=== PATIENT | male | born 1990 | race Two or more races ===

== ENCOUNTER 2019-05-02 12:45 | Emergency (ER) | payer SELFPAY ==
[2019-05-02 12:53] VITALS: BP 117/67
[2019-05-02] MEDS ORDERED: DOCUSATE SODIUM 100 MG CAPSULE RT_EAR ONE (12:59)
--- NOTE | 2019-05-02 13:25 | ER Document Report ---
HPI - HPI Patient complains to provider of: Right ear pain Time Seen by Provider: 05/02/19 12:53 Onset: Other - Days Quality of pain: Achy Pain Level: 4 Context: 36-year-old male presents emergency department with complaints of right ear pain. Reports he cannot hear out of the ear. Has been using peroxide to clean out without success. Reports fever of 102. Denies vomiting diarrhea. Denies past medical history of injury to his ear. Associated Symptoms: Earache Exacerbated by: Denies Relieved by: Denies Similar symptoms previously: No Recently seen / treated by doctor: No - CONSTITUTIONAL Constitutional: REPORTS: Fever - EENT EENT: REPORTS: Ear Pain - right ear - REPRODUCTIVE Reproductive: DENIES: : Past Medical History - General Information source: Patient - Social History Smoking Status: Current Every Day Smoker Chew tobacco use (# tins/day): No Frequency of alcohol use: None Drug Abuse: None Lives with: Friend Family History: None Patient has suicidal ideation: No Patient has homicidal ideation: No - Medical History Medical History: Negative Surgical Hx: Negative Vertical Provider Document - CONSTITUTIONAL Agree With Documented VS: Yes Exam Limitations: No Limitations General Appearance: WD/WN, No Apparent Distress - INFECTION CONTROL TRAVEL OUTSIDE OF THE [place] IN LAST 30 DAYS: No - HEENT HEENT: Atraumatic, Normocephalic. negative: Conjuctival Injection, Pharyngeal Erythema, Tympanic Membrane Red - right ear with cerumen impaction, some wax removed, irrigation ordered - NECK Neck: Normal Inspection, Supple. negative: Lymphadenopathy-Left, Lymphadenopathy-Right - RESPIRATORY Respiratory: No Respiratory Distress - CARDIOVASCULAR Cardiovascular: Regular Rate - MUSCULOSKELETAL/EXTREMETIES Musculoskeletal/Extremeties: ELAINA DOHERTY - NEURO Level of Consciousness: Awake, Alert, Appropriate Motor/Sensory: No Motor Deficit Course - Re-evaluation Re-evalutation: 05/02/19 14:09 right ear irrigated with a large amount of ear wax obtained. pt reports he can hear! Instructed on OTC ear wax kits. Instructed to fu with pcp, return for concerns. He verbalized understanding. - Vital Signs Vital signs: Temp Pulse Resp BP Pulse Ox 98.1 F 72 16 117/67 97 05/02/19 12:52 05/02/19 12:52 05/02/19 12:52 05/02/19 12:52 05/02/19 12:52 Discharge - Discharge Clinical Impression: Right ear pain Cerumen impaction Qualifiers: Laterality: right Qualified Code(s): H61.21 - Impacted cerumen, right ear Condition: Stable Disposition: HOME, SELF-CARE Instructions: Cerumen Impaction ([facility]), Use of [id number] Ibuprofen ([facility]) Additional Instructions: *You have been evaluated for ear pain, Cerumen impaction *Your right ear has been irrigated with a large amount of was removed *Use ear wax softening drops as indicated *Follow up with a primary care provider within one week for recheck *Return to ED for worsening condition, changes, needs Forms: Return to Work
== END 2019-05-02 14:13 | disposition home or self-care (01) ==
LOC: ER 12:45
DX: H61.21 Impacted cerumen, right ear (principal); H92.01 Otalgia, right ear; R50.9 Fever, unspecified; F17.200 Nicotine dependence, unspecified, uncomplicated
CPT/HCPCS: 99282